=== PATIENT | male | born 1980 | race Caucasian/White ===

== ENCOUNTER 2016-10-29 20:19 | Emergency (ER) | payer BC ==
[2016-10-29 20:33] VITALS: RESP 18; TEMP 98.3
--- NOTE | 2016-10-29 20:52 | ED ---
Dizziness HPI - General Chief Complaint: Dizziness Stated Complaint: dizziness Time Seen by Provider: 10/29/16 20:38 Source: patient Mode of arrival: ambulatory Limitations: no limitations - History of Present Illness Initial Comments: 36-year-old male presents with dizziness. Has a history of tetralogy of Fallot for which she's had 3 surgeries and atrial fibrillation. He states that he woke up this morning he turned to roll over and felt spinning which did not last as long as he is not moving to that direction he has no spinning has no nausea no vomiting no difficulty with speech no double vision. No focal numbness or weakness. Unrelated he has noticed occasional wheezing and some shortness breath when he climbs stairs. There's been no history of asthma. - Related Data Home Medications Medication Instructions Recorded Confirmed Cefuroxime Axetil [Ceftin] 500 mg PO BID 08/23/15 08/23/15 Levothyroxine Sodium [Synthroid] 50 mcg PO DAILY 08/23/15 08/23/15 Nadolol 40 mg PO DAILY 08/23/15 08/23/15 Previous Rx's Medication Instructions Recorded Meclizine [Antivert] 12.5 mg PO TID PRN #30 tablet 10/29/16 Allergies Allergy/AdvReac Type Severity Reaction Status Date / Time No Known Allergies Allergy Verified 10/29/16 20:33 Review of Systems ROS Statement: Those systems with pertinent positive or pertinent negative responses have been documented in the HPI. ROS Other: All systems not noted in ROS Statement are negative. Eyes: Denies: eye discharge ENT: Denies: ear pain, throat pain Respiratory: Reports: wheezes. Denies: cough Cardiovascular: Denies: chest pain, palpitations, dyspnea on exertion Endocrine: Denies: fatigue Gastrointestinal: Denies: abdominal pain, nausea, vomiting Genitourinary: Denies: urgency, frequency Skin: Denies: rash Neurological: Denies: headache Psychiatric: Reports: depression. Denies: anxiety Hematological/Lymphatic: Denies: easy bleeding, easy bruising Past Medical History Past Medical History: Atrial Fibrillation, Thyroid Disorder Additional Past Medical History / Comment(s): 08/23/15 Pt presented to [facility] ER with chest pain and tachycardia and some SOB. Pt also states he feels weak all over. He has history of one month ago strep throat and got better from that and then a couple days ago he was diagnosed with tonsillitis and was on ABX for that. He is being admitted with clinical impression of chest pain, tachycardia , aflutter. Other HX: congenital heart defect, hyothyroidism. 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 Additional Past Anesthesia/Blood Transfusion Reaction / Comment(s): Pt states after open heart surgery for valve in 1991 his legs were weak for about 1 day. Type of Cardiac Device: Permanent Pacemaker, AICD Device Placement Date:: 2009 Past Psychological History: No Psychological Hx Reported Additional Psychological History / Comment(s): Pt resides with his and two toddlers. He is independent. He drives. Smoking Status: Former smoker Past Alcohol Use History: Rare Additional Past Alcohol Use History / Comment(s): Pt states he quit smoking in 2010 but obed chew nicorette gum daily. Past Drug Use History: None Reported - Past Family History Father Family Medical History: No Reported History Additional Family Medical History / Comment(s): Father is healthy and is 58 yrs old. Mother Family Medical History: No Reported History Additional Family Medical History / Comment(s): Mother is healthy and is 56 yrs old. General Exam Limitations: no limitations General appearance: alert Eye exam: Present: normal appearance, PERRL, EOMI ENT exam: Present: normal exam, normal oropharynx, mucous membranes moist, TM's normal bilaterally Respiratory exam: Present: normal lung sounds bilaterally Cardiovascular Exam: Present: irregular rhythm, other (Loud heart sounds) GI/Abdominal exam: Present: soft, normal bowel sounds. Absent: distended, tenderness Neurological exam: Present: alert, CN II-XII intact Psychiatric exam: Present: normal affect, normal mood Skin exam: Present: warm, dry Course Vital Signs 10/29/16 20:29 Temperature 98.3 F Pulse Rate 87 Respiratory 18 Rate Blood Pressure 128/70 O2 Sat by Pulse 95 Oximetry Medical Decision Making - Medical Decision Making Chest x-ray shows cardiomegaly radiologist indicates is been no change, he is doing well. Have recommended a follow-up with his daycare assistant for his mild dyspnea on exertion climbing stairs he has no orthopnea PND or pedal edema. He may also need to have pulmonary function test kidney stone with his daycare assistant. We will treat with Antivert. Follow-up with his PMD if worse or not improving. Low-salt diet. - Lab Data Result diagrams: 10/29/16 21:00 Lab Results 10/29/16 Range/Units 21:00 WBC 5.7 (3.8-10.6) k/uL RBC 4.73 (4.30-5.90) m/uL Hgb 14.7 (13.0-17.5) gm/dL Hct 44.4 (39.0-53.0) % MCV 93.8 (80.0-100.0) fL MCH 31.1 (25.0-35.0) pg MCHC 33.2 (31.0-37.0) g/dL RDW 12.8 (11.5-15.5) % Plt Count 166 (150-450) k/uL Neutrophils % (Manual) 38.0 % Band Neutrophils % 1.0 % Lymphocytes % (Manual) 54.0 % Monocytes % (Manual) 5.0 % Eosinophils % (Manual) 2.0 % Neutrophils # (Manual) 2.2 (1.3-7.7) k/uL Lymphocytes # (Manual) 3.1 (1.0-4.8) k/uL Monocytes # (Manual) 0.3 (0-1.0) k/uL Eosinophils # (Manual) 0.1 (0-0.7) k/uL Nucleated RBCs 0 (0-0) /100 WBC Manual Slide Review Performed Reactive Lymphocytes Present - EKG Data -: EKG Interpreted by Me 10/29/16 20:51 EKG of 10/29/20162037 ventricular rate 86 bpm MT interval not applicable, QRS duration 192 ms QT interval 448 ms atrial fibrillation right bundle branch block T changes related to the bundle branch block. Disposition Clinical Impression: Acute labyrinthitis Disposition: HOME SELF-CARE Condition: Good Instructions: Vertigo (ED) Prescriptions: Meclizine [Antivert] 12.5 mg PO TID PRN #30 tablet PRN Reason: Vertigo Time of Disposition: 21:41
[2016-10-29 21:14] LABS: Aty Lym Flag Slight; CH 31.7; CHCM 33.9; HCT 44.4 % (39.0-53.0); HDW 2.74; HGB 14.7 gm/dL (13.0-17.5); MCH 31.1 pg (25.0-35.0); MCHC 33.2 g/dL (31.0-37.0); MCV 93.8 fL (80.0-100.0); Mean Platelet Volume 8.3; RBC 4.73 m/uL (4.30-5.90); RDW 12.8 % (11.5-15.5); WBC 5.7 k/uL (3.8-10.6); WBC (Perox) 5.32
--- NOTE | 2016-10-29 21:22 | XR ---
EXAMINATION TYPE: XR chest 2V DATE OF EXAM: 10/29/2016 9:15 PM COMPARISON: Prior chest x-ray and CTA chest August 23, 2015. HISTORY: Wheezing. TECHNIQUE: Frontal and lateral views of the chest are obtained. FINDINGS: Sternal wires are redemonstrated. There is no focal air space opacity, pleural effusion, or pneumothorax seen. The cardiac silhouette size is remains enlarged with single lead pacemaker/AICD. There is right-sided aortic arch and left-sided superior vena cava redemonstrated The osseous struct ures are intact. IMPRESSION: Cardiomegaly without acute pulmonary process.
[2016-10-29 21:24] LABS: Add Differential Manual Differential
[2016-10-29 21:27] LABS: Anion Gap 11 mmol/L; Calcium 9.3 mg/dL (8.4-10.2); Carbon Dioxide 27 mmol/L (22-30); Chloride 104 mmol/L (98-107); Glucose 118 mg/dL (74-99); Non-African American GFR(MDRD) >60 (>60 ml/min/1.73 sqM); Sodium 142 mmol/L (137-145)
[2016-10-29 21:28] LABS: Manual Review Performed; Nucleated Red Blood Cells 0 /100 WBC (0-0); Reactive Lymphocytes Present; Total Cells Counted 100
[2016-10-29 21:39] LABS: Blood Urea Nitrogen 19 mg/dL (9-20); Potassium 4.4 mmol/L (3.5-5.1)
[2016-10-29 21:48] VITALS: BP 105/55; PULSE 65
== END 2016-10-29 21:48 | disposition home or self-care (01) ==
LOC: EC 20:19
DX: H83.09 Labyrinthitis, unspecified ear (principal); R06.09 Other forms of dyspnea; I48.91 Unspecified atrial fibrillation; E07.9 Disorder of thyroid, unspecified; I51.7 Cardiomegaly; Z98.61 Coronary angioplasty status; Z87.891 Personal history of nicotine dependence; Z95.810 Presence of automatic (implantable) cardiac defibrillator; Z79.899 Other long term (current) drug therapy
CPT/HCPCS: 36415; 71020; 80048; 85025; 93005; 99284

== ENCOUNTER → 2016-11-08 | Outpatient (CLI) | payer BC ==
--- NOTE | 2016-11-08 23:24 | CONS ---
DATE OF CONSULTATION: CONSULTATION/NEW PATIENT EVALUATION HISTORY OF PRESENT ILLNESS/SLEEP-WAKE EVALUATION: 36-year-old gentleman who has been re-evaluated center for possible obstructive sleep apnea-hypopnea syndrome. SLEEP SCHEDULE: Patient's usual sleep schedule on working days from 10:00 p.m. to 5:00 a.m. and on weekends from around 11 or 12:00 p.m. until 7 or 7:30 a.m. FALLING ASLEEP: Sometimes patient has problem with falling asleep, has TV set in bedroom. DURING SLEEP: Prefers to sleep on the stomach position. He snores. He has witnessed episodes of stopped breathing during sleep and also he feels by himself that sometimes he wakes up every day with kind of choking, gasping. Positive history of grinding teeth, restless legs. DURING THE DAY/WAKE STATE: In the morning patient wakes up tired, falling asleep during the day, has problems with memory, concentration, and anxiety. Lutz Sleepiness Scale is 7. PAST MEDICAL HISTORY: Positive for Tetralogy of Fallot, Hypothyroidism. Episodes of atrial fibrillation several times for the last 20 years. PAST SURGICAL HISTORY: Multiple cardiac surgery for Tetralogy of Fallot, status post ICD, low jaw surgery as a teenager, about 20 years. MEDICATIONS: 1. Nadolol. 2. Levothyroxine. 3. Baby aspirin. 4. Citalopram. 5. Magnesium. SOCIAL HISTORY: Positive for smoking for about 15 pack-years; quit 5 years ago. Alcohol consumption rarely. REVIEW OF SYSTEMS: Awakenings from sleep. Sometimes feels sleepiness during the day, snoring. No fevers. No double vision. No recent chest pain. No shortness of breath. No abdominal pain. No bleeding episodes. No blood in urine. No seizure episodes. FAMILY HISTORY: Hyperlipidemia. During physical exam, a 36-year-old gentleman without distress. BP 106/68, HR 60, RR 16. Height 70 inches. Weight 239.8. BMI 34.2. Neck 18 inches in circumference. Temp is 98.1. Oxygen saturation at room air 96%. HEENT: PERRLA, EOMI evaluation of oropharynx showed moderately low position of soft palate, big uvula, restriction of nasal breathing, especially on the left side. HEART: Very minimal systolic murmur on aorta and pulmonary artery with decreasing of second tone on apex. Multiple scars on the chest after the cardiac surgeries. LUNGS: Clear to percussion and to auscultation. Good air exchange. No wheezing or rhonchi. ABDOMEN: Obese. Soft and nontender. Bowel sounds are present. No organomegaly appreciated. EXTREMITIES: No clubbing or cyanosis. MEDICAL DIR: Awake, alert, and oriented x3. Cranial nerves 2 to 7 intact. There is no fasciculation or atrophy noted. No focal deficits observed. In the mouth I could see some signs of scars up to the jaw, after mandibular surgery on the sides of the oral cavity. IMPRESSION: 1. Snoring, witnessed episodes of stopped breathing during sleep, small oropharyngeal air space, restriction of nasal breathing, obstructive sleep apnea-hypopnea syndrome. 2. Status post multiple surgeries for Tetralogy of Fallot. 3. Hypothyroidism. 4. History of episodes of atrial fibrillation. 5. Status post ICD insertion. 6. Status post low jaw surgery. 7. Status post vasectomy. PLAN: 1. Polysomnography for evaluation of patient's breathing during sleep. 2. CPAP/BiPAP titration if sleep study confirms obstructive sleep apnea-hypopnea syndrome. 3. Preferable position during sleep on the side. 4. No driving if patient feels any sleepiness. Patient is aware of civil and criminal liability for unsafe driving. 5. I will see patient for follow-up visit to explain results of the testing and following plan. Thank you very much for referring this patient for consultation. Sincerely, Bryson Santos MD, PhD, FAASM. Diplomat of [employer], Sleep Medicine Board by [employer] Artificial Teeth Inspector of [facility] [place]
== END | disposition home or self-care (01) ==
LOC: SLEEP 15:43
PROVIDERS: ATTEND Internal Medicine
DX: G47.33 Obstructive sleep apnea (adult) (pediatric) (principal); Z79.899 Other long term (current) drug therapy; Z98.890 Other specified postprocedural states; E03.9 Hypothyroidism, unspecified; I48.91 Unspecified atrial fibrillation; Z87.891 Personal history of nicotine dependence
CPT/HCPCS: 99211

== ENCOUNTER → 2017-02-22 | Outpatient (CLI) | payer BC ==
--- NOTE | 2017-02-22 08:29 | US ---
EXAMINATION TYPE: US liver DATE OF EXAM: 02/22/2017 COMPARISON: NONE CLINICAL HISTORY: Abn Liver Function Test R94.5. larger habitus EXAM MEASUREMENTS: Liver Length: 16.9 cm Gallbladder Wall: 0.3 cm CBD: 0.6 cm Right Kidney: 12.5 x 5.5 x 5.1 cm Pancreas: Obscured by bowel gas Liver: mildly heterogenous and attenuating Gallbladder: seen with a 8mm polyp at the mid gb body Evidence for sonographic Lane's sign: no CBD: wnl Right Kidney: wnl IMPRESSION: 1. Mild fatty hepatic infiltration. 2. Probable gallbladder polyp.
== END | disposition home or self-care (01) ==
LOC: RADUSWWP 07:43
PROVIDERS: ATTEND Family Medicine
DX: K76.0 Fatty (change of) liver, not elsewhere classified (principal)
CPT/HCPCS: 76705

== ENCOUNTER → 2017-05-08 | Outpatient (CLI) | payer BC ==
--- NOTE | 2017-05-08 12:18 | FL ---
Fluoroscopy for sniff test INDICATION: Pain FINDINGS: Fluoroscopy time: 46 seconds. Images obtained: 0. The right diaphragm appears to have some mild sluggish response on the sniff test. The range of motio n appears normal and no paradoxical motion is evident. IMPRESSIONS: 1. Right diaphragm mass some minimal sluggish response to inspiration although the range of motion an d motion direction for inspiration and expiration are appropriate.
== END | disposition home or self-care (01) ==
LOC: RADFLWHC 11:02
PROVIDERS: ATTEND Internal Medicine Critical Care Medicine
DX: J98.6 Disorders of diaphragm (principal); R06.02 Shortness of breath
CPT/HCPCS: 76000

== ENCOUNTER → 2017-05-17 | Outpatient (CLI) | payer BC ==
--- NOTE | 2017-05-17 17:52 | PN ---
PROGRESS NOTE DATE OF SERVICE: 05/17/2017 36-year-old gentleman has been followed in Sleep Center for treatment of severe obstructive sleep apnea-hypopnea syndrome. Recently patient was diagnosed with severe sleep apnea by polysomnogram and presently was started on treatment with BiPAP. I discussed with him results of polysomnogram and he also had 2 titration studies. CPAP was not fully effective, and on the third night, we did a titration with BiPAP, which normalized patient breathing. Presently, he is on treatment with BiPAP, able to use equipment every night. Does not have any problems with the pressure or humidification, has a little leak from his nasal mask. I checked the patient's BiPAP unit. BiPAP pressure 17/13. Usage is 100% of the time more than 4 hours. Average usage is 8.2 hours. Leak is 42 L/minute. Apnea-hypopnea index for the last month is 3.9, for the last night is 3.1. Baker Sleepiness Scale today is 6. MEDICATIONS: Nadolol, levothyroxine, baby aspirin, citalopram, magnesium. PHYSICAL EXAM: During physical exam, 36-year-old gentleman without distress. BP 113/63, HR 50, RR 16, weight 239, temp 98.1. Oxygen saturation on room air 94%. HEENT: PERRLA, EOMI. Evaluation of oropharynx showed extremely low position of soft palate. NECK: Supple. No JVD. Thyroid is not palpable. LUNGS: Clear to percussion and to auscultation. Good air exchange. No wheezing or rhonchi. HEART: Slight systolic murmur. ABDOMEN: Obese. Soft and nontender. Bowel sounds are present. No organomegaly appreciated. EXTREMITIES: No cyanosis or clubbing. SUPERVISOR WRAPPING ROOM: Awake, alert and oriented x3. Cranial nerves II through VII intact. There is no fasciculation or atrophy noted. No focal deficits observed. IMPRESSION: 1. Severe obstructive sleep apnea-hypopnea syndrome; apnea-hypopnea index 41.7 with oxygen desaturation to 46.1% on control with BiPAP at the pressure of 17/13 cm of water. Patient demonstrated 100% compliance with treatment, benefitting from treatment. 2. Obesity. 3. Status post multiple surgeries for tetralogy of Fallot. 4. History of episodes of atrial fibrillation. 5. Status post ICD insertion. 6. Status post lower jaw surgery. 7. Status post vasectomy. PLAN: 1. Continue treatment with BiPAP every night for the whole night. 2. Losing weight. 3. Sleep hygiene with time in bed at least 8 hours. 4. No driving if feeling any sleepiness. 5. Prescription for all necessary BiPAP supplies. 6. Followup visit in about 1 year or earlier if patient has any problems. Thank you very much for allowing me to participate in management of your patient. Sincerely, Bryson Santos MD, PhD, FAASM Diplomat of [place] [employer], Sleep Medicine Board by [employer] [employer] [employer] Composing Machine Operator of [facility] [place] MMODL / IJN: [id number] /
== END | disposition home or self-care (01) ==
LOC: SLEEP 15:19
PROVIDERS: ATTEND Internal Medicine
DX: G47.33 Obstructive sleep apnea (adult) (pediatric) (principal); E66.9 Obesity, unspecified; Z98.890 Other specified postprocedural states; Z98.52 Vasectomy status; Z95.810 Presence of automatic (implantable) cardiac defibrillator; Z86.79 Personal history of other diseases of the circulatory system

== ENCOUNTER → 2018-06-13 | Outpatient (CLI) | payer BC ==
--- NOTE | 2018-06-13 17:18 | PN ---
PROGRESS NOTE DATE OF SERVICE: 06/13/2018 This patient is a 37-year-old gentleman who has been followed in the sleep center for treatment of obstructive sleep apnea-hypopnea syndrome. The patient successfully is continuing to use his equipment every night without any significant problems related to mask fitting, pressure or humidification. No snoring with the machine. Granby Sleepiness Scale today is 4. I checked the patient's BiPAP unit. BiPAP pressure is 17/13 cm of water. The patient is using it 100% of the time and 25/30 nights for more than 4 hours. Average usage is 6.7 hours. Leak is 11 L/minute, which is in normal range. Apnea-hypopnea index is 2.8, which is normal. MEDICATIONS: 1. Nadolol. 2. Levothyroxine. 3. Citalopram. 4. Baby aspirin. 5. Magnesium supplement. PHYSICAL EXAMINATION: GENERAL: A pleasant patient in no distress. VITAL SIGNS: BP 98/57, HR 60, RR 16, height 5 feet 9-1/2 inches, weight 223. Patient lost about 16 pounds since previous visit. Body mass index 32.4, temperature 98.1, oxygen saturation at room air 95%. HEENT: PERRLA, EOMI. Evaluation of oropharynx showed tongue protrudes midline. Extremely low position of soft palate. NECK: Supple. No JVD. Thyroid is not palpable. LUNGS: Clear to percussion and to auscultation. Good air exchange. No wheezing or rhonchi. HEART: Systolic murmur. ABDOMEN: Slightly obese. EXTREMITIES: No clubbing or cyanosis. ICT SALES ASSISTANT: Awake, alert, and oriented X3. Cranial nerves 2 to 7 intact. There is no fasciculation or atrophy. noted. No focal deficits observed. IMPRESSION: 1. Obstructive sleep apnea-hypopnea syndrome. Patient demonstrated great compliance with treatment, benefitting from treatment. 2. Mild obesity. Patient lost 16 pounds since his previous visit. 3. History of tetralogy of Fallot, status post multiple surgeries. 4. History of episodes of atrial fibrillation in the past. No recent episodes of atrial fibrillation. 5. Status post ICD insertion, status post low jaw surgery. 6. Status post vasectomy. PLAN: 1. Patient will continue to use BiPAP equipment with the same regimen as he is doing now, every night for the whole night. 2. Continue losing weight. 3. Sleep hygiene with regular time in bed for at least 8 hours. 4. No driving if feeling any sleepiness. 5. We will maintain prescription for all necessary BiPAP supplies, including mask, tube, filters. Thank you very much for allowing me to participate in the management of your patient. Sincerely, Bryson Santos MD, PhD, FAASM Diplomat of [place] [employer] [employer] Clothes Separator of [facility] [place] MMODL / IJN: [id number] /
== END | disposition home or self-care (01) ==
LOC: SLEEP 15:46
PROVIDERS: ATTEND Internal Medicine
DX: G47.33 Obstructive sleep apnea (adult) (pediatric) (principal); E66.9 Obesity, unspecified; Z68.32 Body mass index [BMI] 32.0-32.9, adult; Z86.79 Personal history of other diseases of the circulatory system; Z99.89 Dependence on other enabling machines and devices; Z95.810 Presence of automatic (implantable) cardiac defibrillator; Z98.52 Vasectomy status; Z98.890 Other specified postprocedural states; Z79.82 Long term (current) use of aspirin; Z79.899 Other long term (current) drug therapy

== ENCOUNTER → 2018-08-22 | Outpatient (CLI) | payer BC ==
--- NOTE | 2018-08-22 09:08 | US ---
EXAMINATION TYPE: US liver DATE OF EXAM: 08/22/2018 COMPARISON: 02/22/2017 CLINICAL HISTORY: K75.81 Nonalcoholic steatohepatitis (BARRIENTOS). EXAM MEASUREMENTS: Liver Length: 20.5 cm Gallbladder Wall: 0.2 cm CBD: 0.4 cm Right Kidney: 11.3 x 5.8 x 6.2 cm Pancreas: Obscured by bowel gas Liver: Measuring upper limits of normal in size. There is increased echogenicity of the hepatic pare nchyma with diminished visualization of the portal triads most commonly relating to hepatic steatosis and limiting evaluation for underlying hepatic masses. Gallbladder: Stone visualized measuring 0.8 cm Evidence for sonographic Lane's sign: No CBD: wnl Right Kidney: No hydronephrosis or masses seen IMPRESSION: 1. Heterogenous and hyperechoic hepatic echotexture favoring hepatic steatosis overall to hepatocellu lar diseases. This is concordant with the patient's history of nonalcoholic steatohepatitis and appea rs overall mild to moderate in degree. 2. Cholelithiasis without current sonographic evidence of acute cholecystitis.
== END | disposition home or self-care (01) ==
LOC: RADUSWWP 08:17
PROVIDERS: ATTEND Family Medicine
DX: R93.2 Abnormal findings on diagnostic imaging of liver and biliary tract (principal); K80.20 Calculus of gallbladder without cholecystitis without obstruction; Z87.19 Personal history of other diseases of the digestive system
CPT/HCPCS: 76705

== ENCOUNTER → 2019-08-14 | Outpatient (CLI) | payer BC ==
--- NOTE | 2019-08-14 14:15 | SFUN ---
SLEEP CENTER FOLLOW UP NOTE DATE OF SERVICE: 08/14/2019 A 38-year-old gentleman who has been followed in the Sleep Center for treatment of obstructive sleep apnea-hypopnea syndrome. Patient continued to use CPAP equipment every night for the whole night. Does not have any problems related to the pressure in the machine. No problems related to dryness in the mouth. He is getting all his supplies in time. No snoring with the machine. Talala Sleepiness Scale today is 6. I checked BiPAP unit, pressure is 17/13 cm of water. Patient demonstrated 100% compliance with treatment, usage is 30/30 nights for more than 4 hours with average usage 8.1 hours per night. Leak is 2 L/minute which is very minimal. Apnea-hypopnea index 3.2 for the last month, 4.5 for the last night, 3.2 for the last 6 months. During previous visit, apnea-hypopnea index was 2.8. The patient had 2 episodes of atrial fibrillation during the summer with defibrillation. MEDICATIONS: Sotalol, levothyroxine, citalopram, baby aspirin. PHYSICAL EXAM: Patient in no distress. BP 117/64, HR 76, RR 16, height 5, 10 inches 1/4, weight 237.8. Patient increased his weight on 12 pounds comparing with the previous visit. Oxygen saturation at room air 94%. OROPHARYNX: Extremely low position of soft palate, Mallampati IV. HEART: Systolic murmur. ABDOMEN: Obese. NECK: Supple, no JVD. Thyroid is not palpable. LUNGS: Clear to percussion and to auscultation. Good air exchange. No wheezing or rhonchi. EXTREMITIES: No clubbing or cyanosis. HEEL SLUGGER: Awake, alert, and oriented X3. Cranial nerves 2 to 7 intact. There is no fasciculation or atrophy. noted. No focal deficits observed. IMPRESSION: 1. Obstructive sleep apnea-hypopnea syndrome. Patient demonstrated 100% compliance with BiPAP treatment and benefitting from treatment. 2. Obesity. The patient increased his weight 14 pounds since previous visit. 3. History of tetralogy of Fallot, status post multiple surgeries. 4. History of episodes of atrial fibrillation. Two episodes of atrial fibrillation during the last year. 5. Status post ICD insertion. 6. Status post low jaw surgery. 7. Status post clozapine. PLAN: 1. I will increase pressure on BiPAP unit from 17/13 cm of water to 18/14 cm of water. 2. Patient will continue to use BiPAP equipment every night for the whole night. 3. Losing weight. 4. Sleep hygiene with regular time in bed four at 7-1/2 to 8 hours. 5. No driving if feeling sleepiness. Thank you very much for allowing me to participate in the management of your patient. Sincerely, Bryson Santos MD, PhD, FAASM Diplomat of [employer] Cloth Mercerizer Operator of [facility] [place] MMODL / IJN: [id number] /
== END | disposition home or self-care (01) ==
LOC: SLEEP 11:44
PROVIDERS: ATTEND Internal Medicine
DX: G47.33 Obstructive sleep apnea (adult) (pediatric) (principal); E66.9 Obesity, unspecified; Z86.79 Personal history of other diseases of the circulatory system; Z87.74 Personal history of (corrected) congenital malformations of heart and circulatory system; Z95.810 Presence of automatic (implantable) cardiac defibrillator; Z98.890 Other specified postprocedural states; Z79.82 Long term (current) use of aspirin; Z79.899 Other long term (current) drug therapy

== ENCOUNTER → 2020-05-17 | Outpatient (CLI) | payer BC ==
--- NOTE | 2020-05-17 16:01 | US ---
EXAMINATION TYPE: US liver DATE OF EXAM: 05/17/2020 COMPARISON: US 08/22/18 CLINICAL HISTORY: K75.81 Nonalcoholic steatohepatitis (BARRIENTOS). EXAM MEASUREMENTS: Liver Length: 19.4 cm Gallbladder Wall: 0.3 cm CBD: 0.4 cm Right Kidney: 11.9 x 5.8 x 5.3 cm Pancreas: Partial/Limited visualization Liver: Appears enlarged; There is increased echogenicity of the hepatic parenchyma with diminished v isualization of vessels suggestive of fatty infiltrate Gallbladder: Single stone visualized measuring 1.0 x 0.4 x 0.8 cm Evidence for sonographic Lane's sign: No CBD: wnl Right Kidney: No hydronephrosis or masses seen IMPRESSION: 1. Mild fatty infiltration liver. 2. Cholelithiasis
== END | disposition home or self-care (01) ==
LOC: RADUSWWP 07:01
PROVIDERS: ATTEND Physician Assistant
DX: K76.0 Fatty (change of) liver, not elsewhere classified (principal); K80.20 Calculus of gallbladder without cholecystitis without obstruction
CPT/HCPCS: 76705

== ENCOUNTER → 2020-08-05 | Outpatient (CLI) | payer BC ==
--- NOTE | 2020-08-05 17:03 | SFUN ---
SLEEP CENTER FOLLOW UP NOTE DATE OF SERVICE: 08/05/2020 A 39-year-old gentleman who has been followed in the Sleep Center for treatment of obstructive sleep apnea-hypopnea syndrome. Patient continued to use his CPAP equipment every night. He does not snore with the machine and getting his supplies on a regular basis. [place] Sleepiness Scale today is 3. I checked BiPAP unit, BiPAP pressure 18/14 cm of water, usage 29/30 nights for more than 4 hours with average usage 8.4 hours per night. Leak is 4 L/minute. Apnea- hypopnea index is 2.5, which is normal. MEDICATIONS: Sotalol 80 mg twice a day. Levothyroxine 50 mcg once a day. Aspirin 81 mg once a day. Citalopram 10 mg once a day. Montelukast 10 mg once a day. Symbicort 4 puffs during the day. PHYSICAL EXAM: Patient in no distress. BP 126/85, HR 80, RR 15, height 5,10, weight 237, BMI 34.1, and temperature 98.3. Oxygen saturation at room air 96%. OROPHARYNX: Extremely low position of soft palate. Mallampati 4. HEART: Systolic murmur. ABDOMEN: Obese. NECK: Supple, no JVD. Thyroid is not palpable. LUNGS: Clear to percussion and to auscultation. Good air exchange. No wheezing or rhonchi. EXTREMITIES: No clubbing or cyanosis. MANAGER RN CASE: Awake, alert, and oriented X3. Cranial nerves 2 to 7 intact. There is no fasciculation or atrophy. noted. No focal deficits observed. IMPRESSION: 1. Normal respiration during the sleep after pressure was slightly adjusted up during the previous visit. 2. Obstructive sleep apnea-hypopnea syndrome. Patient demonstrated 100% compliance with treatment, benefitting from treatment. 3. History of tetralogy of Fallot, status post multiple surgery. 4. History of episodes of atrial fibrillation. 5. Obesity. 6. Status post ICD insertion. 7. Status post low jaw surgery. 8. Status post colon resection, vasectomy. PLAN: 1. Patient will continue to use PAP equipment every night for the whole night. 2. Sleep hygiene with regular time in bed for at least 7-1/2 to 8 hours. 3. Precautions related to driving. No driving if feeling sleepiness. 4. I will maintain all necessary prescription for PAP supplies including mask, tube, filters. 5. Watching weight. 6. No driving if feeling sleepiness. 7. Followup visit in 6 months or earlier if patient has any problems. Thank you very much for allowing me to participate in management of your patient. Sincerely, Bryson Santos MD, PhD, FAASM Diplomat of [place] [employer] [place] [employer] Hand Frame Surgical Elastic Knitter of [facility] [place] MMODL / IJN: [id number] /
== END | disposition home or self-care (01) ==
LOC: SLEEP 14:01
PROVIDERS: ATTEND Internal Medicine
DX: G47.33 Obstructive sleep apnea (adult) (pediatric) (principal); Z79.890 Hormone replacement therapy; Z79.899 Other long term (current) drug therapy; Z79.82 Long term (current) use of aspirin; E66.9 Obesity, unspecified; Z98.890 Other specified postprocedural states; Z95.0 Presence of cardiac pacemaker

== ENCOUNTER → 2021-03-17 | Outpatient (CLI) | payer BC ==
--- NOTE | 2021-03-17 21:49 | SFUN ---
SLEEP CENTER FOLLOW UP NOTE DATE OF SERVICE: 03/17/2021. 40-year-old gentleman has been followed in Sleep Center for treatment of obstructive sleep apnea-hypopnea syndrome. Patient continued to use his CPAP equipment every night. No snoring with the machine according to his . Sometimes he feels a little weak from the air escape from the mask. [place] Sleepiness Scale today is 2, which is absolutely normal. I checked BiPAP unit. Pressure is 18/14 cm of water. Usage is 30/30 nights for more than 4 hours. The average usage 8 hours per night, which is perfect. Leak is only 10 L/minute and apnea-hypopnea index is 3.3, which is in normal range. MEDICATIONS: Sotalol 80 mg twice a day, levothyroxine 50 mcg once a day, aspirin 81 mg once a day. Escitalopram 10 mg once a day. Montelukast 10 mg once a day. Symbicort 4 puffs during the day. PHYSICAL EXAMINATION: GENERAL: Patient in no distress. VITAL SIGNS: BP 117/73, HR 69, RR 15, height 5 feet 10 inches, weight 238.8, body mass index 34.1. The patient increased his weight on about 1.8 pounds since last visit. Temperature 97.2, oxygen saturation on room air: 96%. HEENT: Oropharynx extremely low position of soft palate. Mallampati 4. NECK: Supple, no JVD. Thyroid is not palpable. LUNGS: Clear to percussion and to auscultation. Good air exchange. No wheezing or rhonchi. HEART: S1, S2 regular. No murmurs, gallops, or rubs. Systolic murmur. ABDOMEN: Slightly obese. Soft and nontender. Bowel sounds are present. No organomegaly appreciated. EXTREMITIES: No clubbing or cyanosis. GENERAL PASSENGER AGENT: Awake, alert, and oriented X3. Cranial nerves 2 to 7 intact. There is no fasciculation or atrophy. noted. No focal deficits observed. IMPRESSION: 1. Obstructive sleep apnea-hypopnea syndrome. The patient demonstrated 100% compliance with treatment benefitting from treatment. Normal respiration on BiPAP. 2. History of tetralogy of Fallot, status post multiple cardiac surgeries. 3. History of episodes of atrial fibrillation. 4. Obesity. 5. Status post ICD insertion. 6. Status post lower jaw surgery. 7. Status post colon resection. 8. Status post vasectomy. PLAN: 1. Replace air filter. 2. Patient will continue to use PAP equipment every night for the whole night. 3. Sleep hygiene with regular time in bed for at least 7-1/2 to 8 hours. 4. Precautions related to driving. No driving if feeling sleepiness. 5. I will maintain all necessary prescription for PAP supplies including mask, tube, filters. 6. Watching weight. 7. Follow-up visit in 6 months or earlier if patient has any problems. Thank you very much for allowing me to participate in management of your patient. Sincerely, Bryson Santos MD, PhD, FAASM Diplomat of [employer] Sleep Medicine Board of [place] [employer] of [employer] Medicine Supervisor Steel Division of [facility] [place] MMECHOL / DEEJAY: [id number] /
== END ==
LOC: SLEEP 15:01
PROVIDERS: ATTEND Internal Medicine
DX: G47.33 Obstructive sleep apnea (adult) (pediatric) (principal); I48.91 Unspecified atrial fibrillation; E66.9 Obesity, unspecified; Z98.52 Vasectomy status; Z95.810 Presence of automatic (implantable) cardiac defibrillator; Z98.890 Other specified postprocedural states; Z87.74 Personal history of (corrected) congenital malformations of heart and circulatory system; Z79.899 Other long term (current) drug therapy; Z68.34 Body mass index [BMI] 34.0-34.9, adult; Z87.891 Personal history of nicotine dependence

== ENCOUNTER → 2022-04-20 | Outpatient (CLI) | payer BC ==
--- NOTE | 2022-04-20 11:38 | P.PN ---
Subjective DATE: 04/20/2022 FOLLOW UP VISIT. Patient with obstructive sleep apnea hypopnea syndrome return to sleep center for follow-up visit. Information from previous visit have been reviewed. Patient is using BIPAP equipment every night for the whole night, getting BIPAP supplies in time. The patient does not have significant problems with the mask, BIPAP unit and humidification. [place] sleepiness scale is for. I checked information from BIPAP unit. PAP unit pressure 18/14 cm H2O. Usage is 100 % for more then 4 hours, average 8.6 hours per night. Leak is 4 l/m, which is in acceptable range. Apnea Hypopnea Index is 2.5, which is normal. MEDICATIONS:1. Esitalopram 10 mg once a day 2. Levothyroxine 50 g once a day 3. Sotalol 120 mg twice a day 4. Rosuvastatin 5 mg once a day 5. Montelucast 10 mg once a day During physical exam: GENERAL: A pleasant patient without any distress. VITAL SIGNS: BP 106/69, HR 58, RR 16, weight 237, temperature 97.9, oxygen saturation at room air 95 %, body mass index 34 . HEENT: PERRLA, EOMI.low position of soft palate, Mallapati 4 . NECK: Supple. No JVD. LUNGS: Clear to percussion and to auscultation. Good air exchange. No wheezing or rhonchi. HEART: S1, S2 regular. ABDOMEN: Soft and nontender. Slightly obese EXTREMITIES: No clubbing or cyanosis. SHAMPOO PERSON: Awake, alert, and oriented x3. No focal deficit. Impressions: 1. Obstructive sleep apnea-hypopnea syndrome. Patient demonstrated great compliance with treatment, benefiting from treatment. 2. History of paroxysmal atrial fibrillation. During today physical exam regular rhythm. 3. History of tetralogy of tetralogy of Fallot, status post multiple cardiac surgeries. 4. Obesity. 5. Status post ICD insertion. 6. Status post low jaw surgery. 7. Status post colon resection. 8. Status post vasectomy. Plan: 1. Continue using PAP equipment every night for the whole night. 2. To change air filter at least 1-2 times per month. 3. PAP unit should stay lower then position of the head. 4. Advised patient to remove all remaining water from humidifier canister daily and make it dry after each usage. Refill canister with fresh distilled water before each usage. 5. Sleep hygiene with regular time in bed for at least 8 hours. 6. Precautions related to driving. No driving if feel any sleepiness. 7. I will maintain prescription for PAP supplies including mask, tube, filters. 8. Follow up visit in 6 months or earlier if patient has any problems. 9. Watching and losing weight. Thank you very much for allowing me to participate in the management of your patient. Bryson Santos MD, PhD, FAASM. Diplomat of [place] [employer] [employer] Medicine, Sleep Medicine Board by [place] [employer] Internal Medicine Regional Controller of [facility] [place]
== END ==
LOC: SLEEP 10:35
PROVIDERS: ATTEND Internal Medicine
DX: G47.33 Obstructive sleep apnea (adult) (pediatric) (principal); E66.9 Obesity, unspecified; I48.0 Paroxysmal atrial fibrillation; Z98.52 Vasectomy status; Z98.890 Other specified postprocedural states; Z99.89 Dependence on other enabling machines and devices; Z68.34 Body mass index [BMI] 34.0-34.9, adult; Z87.891 Personal history of nicotine dependence
CPT/HCPCS: 99212

== ENCOUNTER → 2023-06-20 | Outpatient (CLI) | payer BC ==
--- NOTE | 2023-06-20 15:00 | P.PN ---
Subjective DATE: 06/20/2023 FOLLOW UP VISIT. Patient with obstructive sleep apnea hypopnea syndrome return to sleep center for follow-up visit. Information from previous visit have been reviewed. Patient is using PAP equipment every night for the whole night, getting PAP supplies in time. The patient does not have significant problems with the mask, PAP unit and humidification. [place] sleepiness scale is 4, which is normal. Occasionally patient may have snoring while using the BiPAP. I checked information from BPAP unit. BPAP unit pressure 19/15 cm of water cm H2O. Usage is 100 % for more then 4 hours, average 8.7 hours per night. Leak is 7 l/m, which is in acceptable range. Apnea Hypopnea Index is 1.8, which is normal. MEDICATIONS:1. Levothyroxine 50 g once a day 2. Sotalol 80 mg twice a day 3. Lovastatin 5 mg once a day 4. Escitalopram 10 mg once a day 5. Symbicort During physical exam: GENERAL: A pleasant patient without any distress. VITAL SIGNS: BP 122/74, HR 55, RR 16 , weight 244.0, temperature 98.1, oxygen saturation at room air 94 % . HEENT: PERRLA, EOMI.low position of soft palate, Mallapati 4 . NECK: Supple. No JVD. LUNGS: Clear to percussion and to auscultation. Good air exchange. No wheezing or rhonchi. HEART: S1, S2 regular. Systolic murmur ABDOMEN: Soft and nontender. Slightly obese EXTREMITIES: No clubbing or cyanosis. OUTBOUND SALES REPRESENTATIVE: Awake, alert, and oriented x3. No focal deficit. Impressions: 1. Obstructive sleep apnea-hypopnea syndrome. Patient demonstrated great compliance with treatment, benefiting from treatment. Occasionally has snoring on the back position according to . 2. Obesity, patient increased weight on 7 pounds comparing to the previous visit. 3. History of atrial fibrillation. 4. History of tetralogy of Fallot, status post multiple cardiac surgeries. 5. Status post ICD insertion. 6. Status post low jow surgery. 7. Status post colon resection. 8. Status post was ectomy. Plan: 1. Continue using PAP equipment every night for the whole night. I increased BiPAP pressure to 20/16 cm of water to prevent snoring. 2. To change air filter at least 1-2 times per month. 3. PAP unit should stay lower then position of the head. 4. Advised patient to remove all remaining water from humidifier canister daily and make it dry after each usage. Refill canister with fresh distilled water before each usage. 5. Sleep hygiene with regular time in bed for at least 8 hours. 6. Precautions related to driving. No driving if feel any sleepiness. 7. I will maintain prescription for PAP supplies including mask, tube, filters. 8. Follow up visit in 6 months or earlier if patient has any problems. 9. Watching and losing weight. Thank you very much for allowing me to participate in the management of your patient. Bryson Santos MD, PhD, FAASM. Diplomat of [place] [employer] Sleep Medicine, Sleep Medicine Board by [place] Board of Internal Medicine Policy Service Coordinator of [facility] [place]
== END ==
LOC: 3 N SLEEP 14:21
PROVIDERS: ATTEND Internal Medicine
DX: G47.33 Obstructive sleep apnea (adult) (pediatric) (principal); I48.91 Unspecified atrial fibrillation; E66.9 Obesity, unspecified; Z95.810 Presence of automatic (implantable) cardiac defibrillator; Z90.49 Acquired absence of other specified parts of digestive tract; Z87.74 Personal history of (corrected) congenital malformations of heart and circulatory system; Z99.89 Dependence on other enabling machines and devices; Z98.890 Other specified postprocedural states; Z87.891 Personal history of nicotine dependence; Z98.52 Vasectomy status
CPT/HCPCS: 99212

== ENCOUNTER → 2024-01-09 | Outpatient (CLI) | payer BC ==
--- NOTE | 2024-01-09 14:54 | P.PROGSL ---
Subjective DATE: 01/09/2024 FOLLOW UP VISIT. Patient with obstructive sleep apnea hypopnea syndrome return to sleep center for follow-up visit. Information from previous visit have been reviewed. Patient is using BPAP equipment every night for the whole night, getting PAP supplies in time. The patient does not have significant problems with the mask, BPAP unit and humidification. [place] sleepiness scale is 5, which is normal. I checked information from PAP unit. BPAP unit is old. Motor life expectancy exceeded. Unit is noisy. BPAP unit pressure 20/16 cm H2O. Usage is 100% for more then 4 hours, average 7.7 hours per night. Leak is 5 l/m, which is in acceptable range. Apnea Hypopnea Index is 1.4, which is normal. MEDICATIONS: Please see below During physical exam: GENERAL: A pleasant patient without any distress. VITAL SIGNS: Please see below, weight 239.4 pounds BMI 35.2. HEENT: PERRLA, EOMI.low position of soft palate, Mallapati 4 . NECK: Supple. No JVD. LUNGS: Clear to percussion and to auscultation. Good air exchange. No wheezing or rhonchi. HEART: S1, S2 regular. ABDOMEN: Soft and nontender.[] EXTREMITIES: No clubbing or cyanosis. GOLF COURSE DESIGNER: Awake, alert, and oriented x3. No focal deficit. Impressions: 1. Obstructive sleep apnea-hypopnea syndrome. Patient demonstrated great compliance with treatment, benefiting from treatment. BiPAP unit is old, noisy, motor life expectancy was exceeded. 2. Obesity, BMI 35.2. 3. History of atrial fibrillation. 4. History of tetralogy of Fallot, status post surgical treatment. 5. Status post ICD insertion. 6. Status post low jaw surgery. 7. Status post vasectomy. 8. Status post colon resection. Plan: 1. Continue using PAP equipment every night for the whole night. 2. To change air filter at least 1-2 times per month. 3. PAP unit should stay lower then position of the head. 4. Advised patient to remove all remaining water from humidifier canister daily and make it dry after each usage. Refill canister with fresh distilled water before each usage. 5. Sleep hygiene with regular time in bed for at least 8 hours. 6. Precautions related to driving. No driving if feel any sleepiness. 7. I will maintain prescription for PAP supplies including mask, tube, filters. 8. Watching and losing weight. 9. Follow up visit in 6 months or earlier if patient has any problems. Thank you very much for allowing me to participate in the management of your patient. Bryson Santos MD, PhD, FAASM. Diplomat of [place] [employer] Medicine, Sleep Medicine Board by [place] [employer] Medicine Tin Worker of [facility] [place] Objective - Vital Signs Vital Signs: Intake & Output 01/08/24 01/09/24 01/09/24 18:59 06:59 18:59 Weight 108.522 kg Home Medications: Home Medications Medication Instructions Recorded Confirmed Type Cefuroxime Axetil [Ceftin] 500 mg PO BID 08/23/15 08/23/15 History Levothyroxine Sodium [Synthroid] 50 mcg PO DAILY 08/23/15 01/09/24 History nadoloL [Nadolol] 40 mg PO DAILY 08/23/15 08/23/15 History Meclizine [Antivert] 12.5 mg PO TID PRN #30 tablet 10/29/16 Rx Aspirin 81 mg PO DAILY 01/09/24 01/09/24 History Budesonide/Formoterol Fumarate 2 inhalation INHALATION BID 01/09/24 01/09/24 History [Symbicort 160-4.5 Mcg Inhaler] Escitalopram [Lexapro] 10 mg PO DAILY 01/09/24 01/09/24 History Montelukast [Singulair] 10 mg PO DAILY 01/09/24 01/09/24 History Rosuvastatin Calcium 5 mg PO DAILY 01/09/24 01/09/24 History Sotalol [Betapace] 80 mg PO BID 01/09/24 01/09/24 History
== END ==
LOC: 3 N SLEEP 14:00
PROVIDERS: ATTEND Internal Medicine
DX: G47.33 Obstructive sleep apnea (adult) (pediatric) (principal); E66.9 Obesity, unspecified; Z68.35 Body mass index [BMI] 35.0-35.9, adult; Z86.79 Personal history of other diseases of the circulatory system; Z98.890 Other specified postprocedural states; Z87.798 Personal history of other (corrected) congenital malformations; Z95.810 Presence of automatic (implantable) cardiac defibrillator; Z98.52 Vasectomy status; Z99.89 Dependence on other enabling machines and devices; Z87.891 Personal history of nicotine dependence; Z90.49 Acquired absence of other specified parts of digestive tract
CPT/HCPCS: 99212